=== PATIENT | female | born 1965 | race Caucasian/White ===

== ENCOUNTER → 2016-05-10 | Outpatient (CLI) | payer BC ==
[~2016-05-10] MED LIST: ACETAMINOPHEN &1 TA1 PO; CRESTOR20 MG PO; CYCLOBENZAPRINE10 MG PO; DIAZEPAM10 MG PO; GABAPENTIN300 MG PO; LINZESS145 MCG PO; LISINOPRIL 10MG10 MG PO; NEXIUM40 MG PO; NORCO 325 MG-101 TAB PO; PREMPRO 0.625 M1 TAB PO
[2016-05-10 16:17] LABS: HEMOGLOBIN 13.2 g/dL (12.2-16.2); LYMPH # 2.2 K/mm3 (0.7-4.5); LYMPH % 19.7 % (10-50.0)
[2016-05-10 17:44] LABS: BUN 19 mg/dL (7-18)
[2016-05-10 18:30] LABS: GFR (ESTIMATED) 76 ML/MIN (59-)
== END ==
LOC: LAB 15:38
PROVIDERS: Physician Assistant
DX: I10 Essential (primary) hypertension (principal)

== ENCOUNTER → 2017-03-10 | Outpatient (CLI) | payer BC ==
[~2017-03-10] MED LIST changes: +NEURONTIN400 MG PO
--- NOTE | 2017-03-10 11:29 | RADIOLOGY REPORT PS360 ---
HAND-LT-3 VIEWS HISTORY: LT HAND PAIN ORDERING PHYSICIAN: Heather Thomas APRN PATIENT AGE: 52 years COMPARISON: None FINDINGS: No fracture or dislocation. No lytic or blastic change. There is normal mineralization. The joint spaces are well-preserved. No significant degenerative/arthritic changes. No erosive changes evident. IMPRESSION: Negative, no acute finding
== END ==
LOC: LAB 10:48
DX: D72.829 Elevated white blood cell count, unspecified (principal); M79.642 Pain in left hand